=== PATIENT | male | born 1960 | race Caucasian/White ===

== ENCOUNTER 2022-02-24 08:48 | Observation (INO) ==
--- NOTE | 2022-01-19 09:53 | PAT Medication Instructions ---
Medication Instructions Date of Service January 19, 2022 Home Medications albuterol sulfate 90 mcg/actuation aerosol inhaler (ProAir HFA) 1 inh INHALATION QID PRN amlodipine 5 mg tablet 5 mg PO QAM carvedilol 6.25 mg tablet (Coreg) 6.25 mg PO BID diclofenac sodium 3 % topical gel 1 applic TOPICAL BID PRN duloxetine 30 mg capsule,delayed release (Cymbalta) 30 mg PO BID fluticasone 250 mcg-salmeterol 50 mcg/dose blistr powdr for inhalation (Advair Diskus) 1 inh INHALATION BID gabapentin 400 mg capsule 800 mg PO BID glucosamine sulfate 1,000 mg capsule 1,000 mg PO QAM levothyroxine 100 mcg capsule 100 mcg PO QAM losartan 100 mg tablet 100 mg PO QAM multivitamin 1 tab PO QAM rivaroxaban 20 mg tablet (Xarelto) 20 mg PO QAM tamsulosin 0.4 mg capsule 0.4 mg PO QAM tiotropium bromide 18 mcg capsule with inhalation device (Spiriva with HandiHaler) 1 cap INHALATION QAM ASK your surgeon for instructions diclofenac sodium 3 % topical gel 1 applic TOPICAL BID PRN ASK your prescriber and surgeon rivaroxaban 20 mg tablet (Xarelto) 20 mg PO QAM DO NOT take the morning of surgery glucosamine sulfate 1,000 mg capsule 1,000 mg PO QAM losartan 100 mg tablet 100 mg PO QAM multivitamin 1 tab PO QAM Take morning of surgery With a small sip of water, OTHERWISE NOTHING TO EAT OR DRINK AFTER MIDNIGHT: albuterol sulfate 90 mcg/actuation aerosol inhaler (ProAir HFA) 1 inh INHALATION QID PRN(use if needed; please bring with you to hospital day of surgery if possible) amlodipine 5 mg tablet 5 mg PO QAM duloxetine 30 mg capsule,delayed release (Cymbalta) 30 mg PO BID fluticasone 250 mcg-salmeterol 50 mcg/dose blistr powdr for inhalation (Advair Diskus) 1 inh INHALATION BID gabapentin 400 mg capsule 800 mg PO BID carvedilol 6.25 mg tablet (Coreg) 6.25 mg PO BID levothyroxine 100 mcg capsule 100 mcg PO QAM tamsulosin 0.4 mg capsule 0.4 mg PO QAM tiotropium bromide 18 mcg capsule with inhalation device (Spiriva with HandiHaler) 1 cap INHALATION QAM Take evening before surgery albuterol sulfate 90 mcg/actuation aerosol inhaler (ProAir HFA) 1 inh INHALATION QID PRN(if needed) duloxetine 30 mg capsule,delayed release (Cymbalta) 30 mg PO BID fluticasone 250 mcg-salmeterol 50 mcg/dose blistr powdr for inhalation (Advair Diskus) 1 inh INHALATION BID gabapentin 400 mg capsule 800 mg PO BID carvedilol 6.25 mg tablet (Coreg) 6.25 mg PO BID Other Notes If you have any questions please call us at [phone] or [phone] or [phone] or [phone]
--- NOTE | 2022-01-23 11:55 | Anesthesiology Consultation ---
Date of Service January 23, 2022 Assessment & Plan (1) Encounter for pre-operative examination: - Case discussed with Dr. Sanders who advised nothing further needed regarding stress test, however we will attempt to obtain records from oncology and [facility] in [place]. 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 S/p surgical intervention for cervical fracture. - COVID screening: Per assessment on 01/23/2022: Travel screen negative, no known COVID-19 positive contacts or current COVID-19 related symptoms in past 2 weeks. Pt vaccinated. Surgeon arranging preop COVID testing, scheduled 02/22/2022. Awaiting results. Chart Review Chart Review: Pending: Refer to Additional Notes / Consult section and Patient seen in Pre Admission Testing Teaching & Discussion Pre-Anesthesia Teaching/Discussion Notes: Instructed NPO after midnight before surgery, except medications with 15 cc of water. Medication instructions provided according to the PAT guidelines. History Surgery Operation Date: 02/24/22 10:35 Proposed Procedures p Right Reverse Total Shoulder Arthroplasty - Brayan Hubbard, Height/Weight Height: 6 ft Weight: 126 kg Allergies Allergy/AdvReac Type Severity Reaction Status Date / Time ampicillin Allergy Unknown Hives Verified 01/19/22 07:36 clindamycin Allergy Unknown Hives Verified 01/19/22 07:36 Sulfa (Sulfonamide Allergy Unknown Redness of Verified 01/19/22 07:36 Antibiotics) Skin Medications Home Medications Medication Instructions Recorded Confirmed Last Taken albuterol sulfate 90 mcg/actuation 1 inh INHALATION QID PRN 12/14/21 01/19/22 Unknown aerosol inhaler (ProAir HFA) amlodipine 5 mg tablet 5 mg PO QAM 12/14/21 01/19/22 Unknown carvedilol 6.25 mg tablet (Coreg) 6.25 mg PO BID 12/14/21 01/19/22 Unknown diclofenac sodium 3 % topical gel 1 applic TOPICAL BID PRN 12/14/21 01/19/22 Unknown duloxetine 30 mg capsule,delayed 30 mg PO BID 12/14/21 01/19/22 Unknown release (Cymbalta) fluticasone 250 mcg-salmeterol 50 1 inh INHALATION BID 12/14/21 01/19/22 Unknown mcg/dose blistr powdr for inhalation (Advair Diskus) gabapentin 400 mg capsule 800 mg PO BID 12/14/21 01/19/22 Unknown glucosamine sulfate 1,000 mg 1,000 mg PO QAM 12/14/21 01/19/22 Unknown capsule levothyroxine 100 mcg capsule 100 mcg PO QAM 12/14/21 01/19/22 Unknown losartan 100 mg tablet 100 mg PO QAM 12/14/21 01/19/22 Unknown multivitamin 1 tab PO QAM 12/14/21 01/19/22 Unknown rivaroxaban 20 mg tablet (Xarelto) 20 mg PO QAM 12/14/21 01/19/22 Unknown tamsulosin 0.4 mg capsule 0.4 mg PO QAM 12/14/21 01/19/22 Unknown tiotropium bromide 18 mcg capsule 1 cap INHALATION QA 12/14/21 01/19/22 Unknown with inhalation device (Spiriva with HandiHaler) Past Medical History Medical History (Updated 01/23/22 @ 12:39 by Lucrecia Jovel PA-C) COPD (chronic obstructive pulmonary disease) controlled, stable per pt-rescue inhaler use on average once weekly Depression DVT (deep venous thrombosis) LLE-on Xarelto Hypertension controlled, stable per pt Hypothyroidism Hypothyroidism Neck fracture INJURY -SCREWS IN C2 Peripheral neuropathy distal lower extremities and hands bilat Sleep apnea CPAP-compliant 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 Exercise / Class Metabolic Activity II 4-5 Yardwork/Stairs/Walk up hill (denies CP or SOB with 1 FOS) Past Family History Family History Other Diabetes Past Surgical History Surgical History (Updated 01/23/22 @ 12:39 by Lucrecia Jovel PA-C) H/O discectomy H/O hernia repair INGUINAL X2 Status post ORIF of fracture of ankle L Status post tracheostomy PLACED AFTER THROAT SURGERY WAS TAKEN TO [facility] 2017 - TRACH REVERSED Past Anesthesia History Difficult Airway and No Family Hx of Anesthesia Complications History of PONV No Hx of PONV and No Hx of Motion Sickness Social History Smoking Status: Former smoker tobacco type: cigarettes Do You Dip or Chew Tobacco: No Smoking End Date: QUIT 2015 Hx Alcohol Use: Yes Alcohol type: beer alcohol intake frequency: a few times a week Hx Substance Use: No substance use type: does not use Review of Systems Patient denies chest pain, shortness of breath, dyspnea on exertion, reflux, fever, chills, cough, wheezing, or palpitations. Physical Exam Vital Signs Vitals BP 149/85 P 68 TEMP 98.0 SP02 96% on RA RESP 17 Physical Limited cervical extension range of motion TMD 3.5 finger breaths Mallampati Score 2, small oral opening Dentition: intact, several missing teeth; denies chipped or loose teeth, caps/crowns, implants or bridges Lungs: normal respiratory effort. Clear throughout to auscultation, no adventitious breath sounds Cardiac: regular rate and rhythm, no murmurs noted Carotid arteries: negative bruit bilat Lab Results Anesthesia Preop Results Results Anesthesia Widget: WBC 4.72 K/uL (4.8-10.8) L 01/23/22 Hgb 14.4 g/dL (14.0-18.0) 01/23/22 Hct 41.8 % (42-52) L 01/23/22 Plt 178 K/uL (130-400) 01/23/22 Na 138 mmol/L (136-145) 01/23/22 K 4.3 mmol/L (3.5-5.1) 01/23/22 Cl 105 mmol/L (98-107) 01/23/22 CO2 29 mmol/L (21-32) 01/23/22 BUN 15 mg/dl (6-23) 01/23/22 Creat 0.91 mg/dl (0.6-1.4) 01/23/22 Glucose Level 117 mg/dl (70-99(Fasting)) H 01/23/22 PT 12.1 Seconds (9.0-12.0) H 01/23/22 PTT 29.5 Seconds (21.0-31.0) 01/23/22 INR 1.1 (0.9-1.1) 01/23/22 Blood Type O Positive 01/23/22 Antibody Screen NEGATIVE 01/23/22 Testing Electrocardiogram Date: 01/23/22 Sinus bradycardia, rate 55 bpm Chest X-Ray Date: 01/23/22 No lines and tubes are seen. The cardiomediastinal silhouette is normal. The lungs are clear. No evidence of pleural effusion or pneumothorax. Degenerative changes are seen in the thoracic spine. IMPRESSION: No acute chest disease. Stress Test Date: 02/04/20 Exercise MPHR 86% No dobutamine induced EKG changes, occasional PVCs are seen Stress echo: LV EF low-normal to mildly reduced estimated at 50% with mild global hypokinesis and no segmental wall motion abnormality
--- NOTE | 2022-02-23 08:58 | History & Physical Report ---
Date of Service February 23, 2022 Assessment & Plan (1) Osteoarthritis of right shoulder: We will proceed with a right reverse shoulder arthroplasty. Postoperatively he will be kept overnight in the hospital for postoperative medical management. He plans to go to [facility] and [facility] upon discharge. History of Present Illness Chief Complaint: Osteoarthritis of the right shoulder. Primary Care Provider: Akira Lao DO Marcos is a pleasant 61-year-old male who is retired and lives up in [place]. He has been dealing with chronic right shoulder pain. He has been treated by another provider. He has had injections over the years of no longer helping.. He is really struggling. He has trouble doing any activities away from his body or up overhead with his shoulder x-rays show advanced osteoarthritis. After failing conservative treatment, he has elected proceed with a right reverse shoulder arthroplasty. Allergies Allergy/AdvReac Type Severity Reaction Status Date / Time ampicillin Allergy Unknown Hives Verified 01/19/22 07:36 clindamycin Allergy Unknown Hives Verified 01/19/22 07:36 Sulfa (Sulfonamide Allergy Unknown Redness of Verified 01/19/22 07:36 Antibiotics) Skin Home Medications Medication Instructions Recorded Confirmed Type albuterol sulfate 90 mcg/actuation 1 inh inhalation QID PRN Shortness 12/14/21 01/19/22 History aerosol inhaler (ProAir HFA) Of Breath amlodipine 5 mg tablet 5 mg PO QAM 12/14/21 01/19/22 History carvedilol 6.25 mg tablet (Coreg) 6.25 mg PO BID 12/14/21 01/19/22 History diclofenac sodium 3 % topical gel 1 applic topical BID PRN Pain 12/14/21 01/19/22 History duloxetine 30 mg capsule,delayed 30 mg PO BID 12/14/21 01/19/22 History release (Cymbalta) fluticasone 250 mcg-salmeterol 50 1 inh inhalation BID 12/14/21 01/19/22 History mcg/dose blistr powdr for inhalation (Advair Diskus) gabapentin 400 mg capsule 800 mg PO BID 12/14/21 01/19/22 History glucosamine sulfate 1,000 mg 1,000 mg PO QAM 12/14/21 01/19/22 History capsule levothyroxine 100 mcg capsule 100 mcg PO QAM 12/14/21 01/19/22 History losartan 100 mg tablet 100 mg PO QAM 12/14/21 01/19/22 History multivitamin 1 tab PO QAM 12/14/21 01/19/22 History rivaroxaban 20 mg tablet (Xarelto) 20 mg PO QAM 12/14/21 01/19/22 History tamsulosin 0.4 mg capsule 0.4 mg PO QAM 12/14/21 01/19/22 History tiotropium bromide 18 mcg capsule 1 cap inhalation QAM 12/14/21 01/19/22 History with inhalation device (Spiriva with HandiHaler) Past Med/Surg History Medical History COPD (chronic obstructive pulmonary disease) controlled, stable per pt-rescue inhaler use on average once weekly Depression Difficult intubation h/o epiglottis SCC s/p surgery 07/21/16 during which it was determined endoscopic approach would not be adequate. Trach tube was re-placed and per records scanned to chart, pt underwent chemo therapy and radiation, trach eventually reversed. Persistent dysphagia, hoarse voice. Pt is also s/p cervical surgical intervention for C2 fracture with limited cervical extension and small oral opening on exam. DVT (deep venous thrombosis) LLE-on Xarelto Hypertension controlled, stable per pt Hypothyroidism Neck fracture INJURY -SCREWS IN C2 Obesity Peripheral neuropathy distal lower extremities and hands bilat Sleep apnea CPAP-compliant Squamous cell cancer of epiglottis surgical intervention initiated 07/21/16 (see operative report) then terminated d/t extent of disease. Trach tube re-placed. Pt underwent chemo and radiation through [facility] in [place] and trach eventually reversed per records. Follows with ENT, Dr. Bermeo q 6 months Status post fracture of femur W/ ORIF LEFT AFTER INJURY Surgical History H/O discectomy H/O hernia repair INGUINAL X2 Status post ORIF of fracture of ankle L Status post tracheostomy PLACED AFTER THROAT SURGERY WAS TAKEN TO [facility] 2017 - TRACH REVERSED Family History Other Diabetes Social History Smoking Status: Former smoker Smoking End Date: QUIT 2015; Second Hand Exposure: No; Do You Dip or Chew Tobacco: No; Tobacco Cessation Education Requested by Patient: No Hx Alcohol Use: Yes Alcohol type: beer Alcohol Intake Frequency Comment: 1-2 DRINKS/DAY Hx Substance Use: No Preferred Language: Korean Communication Ability: Effective Geothermal Hvac Technician Required: No Beliefs That Will Affect Care: None marital status: Current Living Situation: Spouse current occupational status: retired Other Information That Helps Us Care for You: No Feels Safe at Home: Yes Safety Concerns: Feels Safe At This Time Assistive Devices: CPAP, Denture - Upper, Denture - Lower and Glasses Review of Systems All systems reviewed & are unremarkable except as noted in HPI & below. Physical Exam On physical examination the right shoulder, he has 60 degrees of forward elevation 60 degrees of abduction and 20 degrees of external rotation. He has pain and crepitus with range of motion. He has pain of the glenohumeral joint line.. Constitutional WD/WN, vitals as above Eyes PERRL, conjunctivae normal, anicteric sclerae ENMT external ear and nose normal, oropharynx normal Neck trachea midline, no thyromegaly Respiratory normal respiratory effort, lungs clear to auscultation Cardiovascular RRR, no murmur, no edema Gastrointestinal (Abdomen) normal bowel sounds, soft, nontender, no hepatosplenomegaly Skin no rashes, warm and dry Psychiatric A+Ox3, euthymic affect Results & Data Results & Data Laboratory Results . Diagnostic Findings X-rays of the right shoulder show advanced osteoarthritis with joint space narrowing, osteophyte formation, and [id number] articulation. PG Care Time/CCT Total # of Minutes Spent Total Time Spent with Patient: Total time spent is greater than 50% in coordination of care (as documented) at patient's floor/unit and/or counseling patient: Coding Level of Care Code None Diagnoses Osteoarthritis of right shoulder M19.011
[~2022-02-24 08:48] MED LIST: ACETAMINOPHEN 500 MG TAB PO SCH; ALLERGY Noted to ORDERED Medication SCH; BUPIVACAINE 0.5 % 5 MG/1 ML PF 10ML VIAL ONE; FAMOTIDINE 20 MG TAB PO SCH; GABAPENTIN 600 MG DOSE PO SCH; Ketorolac (*for OR use only*) 30 MG, dexAMETHasone 4 MG, KETAMINE HCL (**OR use only) 1... INFIL SCH; LR 15ML/HR IV SCH; LR 60ML/HR IV SCH; TRANEXAMIC ACID 1,000 MG **IV Intra-op IV SCH; TRANEXAMIC ACID 1,000 MG **IV Pre-op IV SCH; dexAMETHasone 4 MG TAB PO SCH
[2022-02-24] MEDS ORDERED: Nursing to Pharmacy Communication SCH (09:45)
[2022-02-24] MEDS ORDERED: ePHEDrine sulfate 50 MG/ML AMP IV PRN (09:53)
[2022-02-24] MEDS ORDERED: LABETALOL HCL IV 5 MG/ML 20ML IV PRN (09:53)
[2022-02-24] MEDS ORDERED: ATROPINE SULFATE 0.1 MG/ML 10ML SYR IV PRN (09:53)
[2022-02-24] MEDS ORDERED: ONDANSETRON INJ 2 MG/ML 2 ML VIAL IV PRN ×2 (09:53→14:18)
[2022-02-24] MEDS ORDERED: PHENYLEPHRINE 100MCG/ML 5ML SYR IV PRN (09:53)
[2022-02-24] MEDS ORDERED: fentaNYL citrate 100 MCG/2 ML VIAL IV PRN (09:53)
[2022-02-24] MEDS ORDERED: MEPERIDINE HCL 25 MG/ML CARP/VIAL IV PRN (09:53)
[2022-02-24] MEDS ORDERED: HYDROmorphone INJ 1 MG/ML SYRINGE IV PRN (09:53)
[2022-02-24] MEDS ORDERED: ORTHO JOINT ANESTHETIC ONE (10:43)
[2022-02-24] MEDS ORDERED: MIDAZOLAM HCL 1 MG/ML 2ML VIAL ONE (10:49)
[2022-02-24] MEDS ORDERED: fentaNYL citrate 100 MCG/2 ML VIAL ONE (11:03)
--- NOTE | 2022-02-24 11:06 | History & Physical Bridge Note ---
Date of Service February 24, 2022 History & Physical Bridge Note I have examined the patient, reviewed the History & Physical and in the interval since the performance of the History & Physical I have noted the following changes of clinical significance: no changes noted
[2022-02-24] MEDS ORDERED: DEXAMETHASONE SOD INJ 4 MG/ML VIAL ONE (11:35)
--- NOTE | 2022-02-24 13:00 | Operative Report ---
PG Post Operative Report Pre & Post Diagnosis Operation Date: 02/24/22 11:40 Pre-Op Diagnosis: Right Shoulder Osteoarthritis with tendinopathy of the long head of the biceps tendon Post-Op Diagnosis: Right Shoulder Osteoarthritis with tendinopathy of the long head of biceps tendon I identified the patient and participated in the time-out.: Yes Procedure Operation Date: 02/24/22 11:40 Actual Procedures p Right Reverse Total Shoulder Arthroplasty(Right) with open biceps tenodesis as a distinct and separate procedure (modifier 59)- Brayan Hubbard DO Surgeon Brayan Hubbard DO Excavation Laborer Wyatt Ortega PA-C Estimated Blood Loss 300 Findings Consistent with Post-Op Diagnosis Specimens Right humeral head Description of Procedure A CPT code modifier 59: The long head of the biceps tendon was enlarged and inflamed consistent with tendinopathy. A tenodesis was opted. This was a separate and distinct portion of the procedure. For these reasons, a CPT code modifier 59 will be added to this case. Implants used: I used a [employer] Comprehensive reverse total shoulder arthroplasty system with a size 11 press fit micro humeral stem, a standard humeral tray and a standard humeral bearing, a 25 mm small augment baseplate with a 6.5 mm central screw and superior and inferior locking screws, and a size 40 mm eccentric glenosphere. Akira arrived at [facility] for the above procedure. He was seen in the preoperative holding area and the operative extremity was identified and signed. He was given a preoperative antibiotic, TXA, and an interscalene nerve block. He was taken back to the operating room, laid on table in supine position, and put under general anesthesia. He was then put into the beachchair position. The shoulder was then prepped and draped in sterile fashion. A timeout was done and the patient and the operative extremity was properly identified. A deltopectoral approach was used. Dissection was taken down through the fascia and the deltoid was retracted laterally and the conjoined tendon was retracted medially. The anterior shoulder was exposed. The biceps groove was opened up and the biceps tendon was examined extensively. The biceps tendon demonstrated enlargement and inflammatory changes consistent with longstanding inflammation in the context of osteoarthritis and cuff arthropathy. The long head of the biceps tendon was then tenodesed to the upper border of the pectoralis major. This was a separate and distinct portion of the procedure. The subscapularis was then directly released off the lesser tuberosity with a peel technique. The inferior capsule was released and the humeral head was dislocated. A canal finding reamer was sent down the center of the humeral canal. Sequential reaming up to a size 11 reamer was done. Off that reamer, a proximal humeral resection guide was placed. The proximal humerus was resected at 135 of inclination and 25 of retroversion. Osteophytes were then removed and the glenoid was exposed. Time was spent doing a complete capsular and labral release. A ZimRollCall (roll.to) Signature One guide was then attached onto the anterior rim of the glenoid. A 3.2 mm Steinmann pin was then placed in the reverse total shoulder arthroplasty hole. The glenoid baseplate was then reamed. The final size 25 mm small augment baseplate was then impacted in the place. A 6.5 mm central screw was then placed followed by superior and inferior locking screws. A 40 mm eccentric glenosphere was then impacted into place. Surrounding soft tissues were then injected with 100 cc an orthopedic pain control cocktail. The proximal humerus was then exposed. Sequential broaching of the humerus up to a size 11 broach was done. Off that broach a standard humeral tray was trialed. The shoulder was then reduced, brought through a full range of motion, and felt to be stable. The shoulder was then dislocated and the broach was removed. The final size 11 micro press-fit humeral stem was then impacted into place. A standard humeral bearing was then snapped onto a standard humeral tray. The humeral tray was then impacted onto the humeral stem. The shoulder was once again reduced, brought through a full range of motion, and felt to be stable. The subscapularis was very poor quality and unable to be repaired. A dilute betadyne lavage was then done for 3 minutes. The joint was then irrigated with normal saline solution. Hemostasis was obtained. The interval was closed with 2-0 Vicryl suture. The skin was then closed with 2-0 Vicryl and kaiser. A Silverlon dressing was placed and the arm was rested in a regular arm sling. He was then extubated and transferred to a hospital bed. He taken to the postanesthesia care unit in stable condition. He tolerated the procedure well. Brayan Germain PA-C, was present for the entire procedure. He was critical for patient positioning, prepping, draping, retraction exposure, wound closure and application of sterile dressing. I attest to the content of the Intraoperative Record and any orders documented therein. Any exceptions are noted below.
[2022-02-24] MEDS ORDERED: LIDOCAINE 2% 20 MG/ML 5 ML SYR IV ONE (13:29)
[2022-02-24] MEDS ORDERED: VASOPRESSIN 20 UNIT/ML VIAL ONE (13:29)
[2022-02-24] MEDS ORDERED: GLYCOPYRROLATE 0.2 MG/ML VIAL ONE (13:29)
--- NOTE | 2022-02-24 13:58 | XRay Report ---
RIGHT SHOULDER 2 VIEWS CLINICAL HISTORY: Postoperative examination. FINDINGS: 2 portable views of the right shoulder are obtained. The skeletal structures are osteopenic . A right shoulder arthroplasty is in near-anatomic alignment. No acute fracture is seen. Skin clips, soft tissue edema, and subcutaneous gas overlying the right shoulder are expected postoperative chicas ges. There is chronic posttraumatic deformity of the right humeral shaft. Productive degenerative lore nge is seen at the right acromioclavicular joint. The right lung parenchyma is clear as imaged. IMPRESSION: Expected postoperative findings status post right shoulder arthroplasty. No acute fractur e is seen. Electronically signed by: Nestor Umana M.D. 02/24/2022 1:56 PM
[2022-02-24] MEDS ORDERED: ALBUTEROL HFA 8 GM INHALER INH PRN (14:18)
[2022-02-24] MEDS ORDERED: oxyCODONE HCL IR 5 MG TAB (IMMEDIATE RELEASE) PO PRN (14:18)
[2022-02-24] MEDS ORDERED: MAGNESIUM HYDROXIDE SUSP 30 ML UDC PO PRN (14:18)
[2022-02-24] MEDS ORDERED: bisacodyL 10 MG SUPP PR PRN (14:18)
[2022-02-24] MEDS ORDERED: HYDROmorphone INJ 0.5 MG/0.5 ML SYR IV PRN (14:18)
[2022-02-24] MEDS ORDERED: NALOXONE HCL 0.4 MG/1 ML VIAL/CARP IV PRN (14:18)
[2022-02-24] MEDS ORDERED: METOCLOPRAMIDE HCL INJ 5 MG/ML 2 ML VIAL IV PRN (14:18)
--- NOTE | 2022-02-24 14:25 | Anesthesiology Progress Note ---
Date of Service February 24, 2022 Anesthesia Post Procedure Vital Signs Vital Signs: Temp Pulse Resp BP Pulse Ox O2 Del Method O2 Flow Rate 02/24/22 14:00 36.1 C L 72 16 114/68 94 Nasal Cannula 2 02/24/22 13:50 75 18 142/80 H 94 Nasal Cannula 2 02/24/22 13:40 78 18 125/78 98 Oxymask 5 02/24/22 13:30 79 18 129/89 98 Oxymask 5 02/24/22 13:23 35.8 C L 84 20 146/84 H 96 Oxymask 5 02/24/22 09:41 36.8 C 64 22 137/86 96 Room Air Pain Intensity Right Shoulder: Pain Intensity: 2 Transfer of Care Handoff Completed per policy Notes Mental Status: alert / awake / arousable Patient Amnestic to Procedure: Yes Nausea / Vomiting: adequately controlled Pain: adequately controlled Airway Patency, RR, SpO2: stable & adequate BP & HR: stable & adequate Hydration State: stable & adequate Anesthetic Complications: no major complications apparent and Pt Satisfied with anesthetic care Notes: The patient is awake and comfortable. SpO2 is 94 on 2 L NC. His other vitals are stable. The patient is using an incentive spirometer. The patient was noted to have a small airway requiring a 6.5 ETT due to history of epiglottis cancer and tracheostomy. He tolerated the procedure well and was extubated without incident in the OR.
[2022-02-24] MEDS: SODIUM CHLORIDE 0.9% 1000ML 1,000 ML IV SCH ×2 (14:39→22:15)
--- NOTE | 2022-02-24 15:23 | Operative Report ---
Post Operative Report Pre & Post Diagnosis Operation Date: 02/24/22 11:40 Pre-Op Diagnosis: Right Shoulder Osteoarthritis Post-Op Diagnosis: Right Shoulder Osteoarthritis I identified the patient and participated in the time-out.: Yes Procedure Operation Date: 02/24/22 11:40 Actual Procedures p Right Reverse Total Shoulder Arthroplasty(Right) - Brayan Hubbard DO Surgeon Arturo Hubbard MD Diversional Therapist Wyatt Ortega PA-C, Solitario Curry MD Estimated Blood Loss 300 Findings Consistent with Post-Op Diagnosis Consistent with post op diagnosis. Specimens No specimens. Description of Procedure I participated in prepping dressing and assisted Dr. Hubbard during the procedeure. Please see Dr. Hubbard note. I attest to the content of the Intraoperative Record and any orders documented therein. Any exceptions are noted below.
[2022-02-24] MEDS: ACETAMINOPHEN 500 MG TAB PO SCH ×2 (16:18→22:15)
[2022-02-24] MEDS: ceFAZolin 2000MG 2,000 MG/15 ML SYR IV SCH (20:41)
[2022-02-24] MEDS: DULoxetine HCL 30 MG CAP PO SCH (20:43)
[2022-02-24] MEDS: carvediloL 6.25 MG TAB PO SCH (20:43)
[2022-02-24] MEDS: DOCUSATE SODIUM 100 MG CAP PO SCH (20:45)
[2022-02-24] MEDS ORDERED: SENNA 8.6 MG TAB PO SCH (21:00)
[2022-02-25] MEDS: ceFAZolin 2000MG 2,000 MG/15 ML SYR IV SCH (03:45)
[2022-02-25] MEDS: ACETAMINOPHEN 500 MG TAB PO SCH (05:44)
[2022-02-25] MEDS ORDERED: LEVOTHYROXINE SODIUM 100 MCG TABLET PO SCH (06:30)
[2022-02-25] MEDS ORDERED: dexAMETHasone 4 MG TAB PO SCH (08:00)
--- NOTE | 2022-02-25 08:30 | Orthopedic Progress Note ---
Date of Service February 25, 2022 Assessment & Plan (1) Status post reverse total replacement of right shoulder: Overall is doing very well. Is not having any pain in his right shoulder. He will be seen by physical therapy today for ambulation and range of motion exercises. He can be discharged home later today. He will follow-up with orthopedics in 2 weeks. Subjective Marcos was seen and examined at bedside this morning. Overall is doing very well. He is not having any pain in the right shoulder. He had no acute events overnight and he has no complaints.. Review of Systems All systems reviewed & are unremarkable except as noted in HPI & below. Physical Exam On physical examination of the right shoulder, the dressing is clean and dry. He is wearing a sling as instructed. The nerve block is still in effect.. Results & Data Results & Data Laboratory Results . Diagnostic Findings Postoperative x-rays of the right shoulder show the prosthesis to be in anatomic alignment without any evidence of fracture, screws, or loosening. PG Care Time/CCT Total # of Minutes Spent Total Time Spent with Patient: Total time spent is greater than 50% in coordination of care (as documented) at patient's floor/unit and/or counseling patient: Coding Level of Care Code 60943 Post Operative Follow-Up Diagnoses Status post reverse total replacement of right shoulder Z96.611
--- NOTE | 2022-02-25 08:31 | Discharge Summary ---
Date of Service February 25, 2022 Admission HPI (Per Admitting) Marcos is a pleasant 61-year-old male who is retired and lives up in [place]. He has been dealing with chronic right shoulder pain. He has been treated by another provider. He has had injections over the years of no longer helping.. He is really struggling. He has trouble doing any activities away from his body or up overhead with his shoulder x-rays show advanced osteoarthritis. After failing conservative treatment, he has elected proceed with a right reverse shoulder arthroplasty. Admission Exam (Per Admitting) On physical examination the right shoulder, he has 60 degrees of forward elev ation 60 degrees of abduction and 20 degrees of external rotation. He has pain and crepitus with range of motion. He has pain of the glenohumeral joint line.. Principal Diagnosis Same as "Discharge Diagnosis" noted below under Discharge Instructions. Discharge Exam On physical examination of the right shoulder, the dressing is clean and dry. He is wearing a sling as instructed. The nerve block is still in effect.. Discharge Data Procedures Performed Operation Date: 02/24/22 11:40 Actual Procedures p Right Reverse Total Shoulder Arthroplasty(Right) - Brayan Hubbard DO Ordered Studies 02/24/22 05:00 US - OR guided needle placemen Routine Hospital Course (1) Status post reverse total replacement of right shoulder: On February 24, 2022 Marcos arrived at [facility] and underwent a right reverse shoulder replaced without complication. He had a spinal anesthetic and a right interscalene nerve block. Postoperatively he was placed in a sling and transferred to the general orthopedic floors. His hospital course was uneventful. On postop day #1, his vital signs were stable and his pain was well controlled. He was able to participate well with physical therapy doing ambulation and range of motion exercises. He was then discharged home. He will follow-up with orthopedics in 2 weeks. PG Care Time/CCT Total # of Minutes Spent Total Time Spent with Patient: Total time spent is greater than 50% in coordination of care (as documented) at patient's floor/unit and/or counseling patient: Discharge Plan Discharge Items Patient Disposition: Home - Home Health Services Reason For Visit: Right Shoulder Osteoarthritis Discharge Diagnosis: Right reverse shoulder replacement Activity: Per Instructions section Non-emergency contact: Surgeon Call non-emergency contact if: your wound has increased redness and your wound has increased drainage Follow-up/Referrals: Akira Lao DO [Primary Care Provider] - Diet: Regular Addtl Attending Provider Instructions: Activity and Therapy Recommendations: * If you are using [facility] then therapy will be provided at your home until they feel you have accomplished all of your goals. * If you are using [facility] then Physical Therapy will be provided until they feel you are ready to start Outpatient Physical Therapy. * If you are not using home therapy then Outpatient Physical Therapy should start about 3-5 days from your day of surgery. Therapy will last about 8-12 weeks * Wear your sling for 3 weeks, unless otherwise instructed. You may remove your sling to shower and to dress, but otherwise, you should be in your sling at all times, including while sleeping * The shoulder replacement is very stable and you can use your hand while in the sling * You were shown a series of exercises in the hospital. Do these exercises daily including the exercises you were shown in physical therapy. Medications: * Narcotic You will likely be sent home from the hospital with a prescription for the narcotic pain medication that worked best throughout your stay. * Other medications may be prescribed for specific circumstances. If you have any questions, please call the office at . * Resume previous home medications unless otherwise instructed Dressing Care: Leave the Silverlon dressing in place for 7 days. After 7 days you may remove the dressing. If the incision is not draining then you may leave the kaiser open to air. If there is a little bit of drainage or if the kaiser are getting stuck on your clothing then cover the incision with a dry dressing. The kaiser will be removed at your 2 week follow-up appointment. Showering: You may shower with the Silverlon dressing in place. Do not let the shower spray hit the dressing directly. Pat the Silverlon dressing dry. If the dressing becomes wet underneath, then simply remove the dressing. Keep the incision dry until you are 7 days out from the day of surgery. After 7 days you may remove the Silverlon dressing and shower with the kaiser exposed. Let soapy water run over the kaiser and pat them dry. Do not scrub or soak the incision. Things To Watch For: * Drainage from the incision site that occurs more than one week after your surgery. * Increased redness at the incision site. * Fever above 102 degrees Fahrenheit. * Unusual chest pain or shortness of breath. * Call [facility] at with any of the above problems Follow-Up Visit: Follow-up with Dr. Hubbard's PA (Brayan Germain) 2-3 weeks after your day of surgery. He will remove your kaiser and answer any questions. If you have any additional questions or concerns, Dr Hubbard is usually in the office at the same time and will be available An appointment was probably scheduled when you signed-up for surgery in the office. If you have any questions call More detailed instructions as well as Frequently Asked Questions were provided in a folder by our office when you signed-up for surgery. Please review these instructions when you get home. If you have any further questions or concerns, please feel free to call the office at [phone] Pending Studies at Discharge: No Stand-Alone Forms: My [facility], Smoking Cessation Medications and DC Order Prescriptions: New oxycodone-acetaminophen 5-325 mg tablet 1 tab PO Q6H PRN (Reason: pain) Qty: 30 0RF Continued duloxetine [Cymbalta] 30 mg capsule,delayed release(DR/EC) 30 mg PO BID losartan 100 mg tablet 100 mg PO QAM diclofenac sodium 3 % gel 1 applic topical BID PRN (Reason: Pain) levothyroxine 100 mcg capsule 100 mcg PO QAM fluticasone propion-salmeterol [Advair Diskus] 250-50 mcg/dose blister with device 1 inh inhalation BID Spiriva with HandiHaler 18 mcg capsule, w/inhalation device 1 cap inhalation QAM Rx Instructions: puncture 1 cap using device; one dose = 2 inhalations amlodipine 5 mg tablet 5 mg PO QAM albuterol sulfate [ProAir HFA] 90 mcg/actuation HFA aerosol inhaler 1 inh inhalation QID PRN (Reason: Shortness Of Breath) tamsulosin 0.4 mg capsule 0.4 mg PO QAM multivitamin Tablet 1 tab PO QAM Xarelto 20 mg tablet 20 mg PO QAM Rx Instructions: must administer with evening meal carvedilol [Coreg] 6.25 mg tablet 6.25 mg PO BID Rx Instructions: must administer with a meal/food glucosamine sulfate 1,000 mg capsule 1,000 mg PO QAM Rx Instructions: administer with a meal Discharge Orders: Discharge Order (Routine); Ordered 02/25/22 Ordered By: Brayan Hubbard Admission Data Admit Date/Time: 02/24/22 13:25 Attending Provider: Brayan Hubbard Admit Provider: Brayan Hubbard Primary Care Provider: Akira Lao
[2022-02-25] MEDS: DULoxetine HCL 30 MG CAP PO SCH (08:43)
[2022-02-25] MEDS: DOCUSATE SODIUM 100 MG CAP PO SCH (08:44)
[2022-02-25] MEDS: carvediloL 6.25 MG TAB PO SCH (08:44)
[2022-02-25] MEDS ORDERED: RIVAROXABAN 20 MG TAB PO SCH (09:00)
[2022-02-25] MEDS ORDERED: LOSARTAN POTASSIUM 50 MG TAB PO SCH (09:00)
[2022-02-25] MEDS ORDERED: MULTIVITAMIN TAB PO SCH (09:00)
[2022-02-25] MEDS ORDERED: UMECLIDINIUM BROMIDE 62.5MCG/BLISTER 7 PUFFS/INHALER INH SCH (09:00)
[2022-02-25] MEDS ORDERED: amLODIPine BESYLATE 5 MG TAB PO SCH (09:00)
[2022-02-25] MEDS ORDERED: FLUTICASONE/VILANTEROL 200/25MCG 14 PUFFS/INHALER INH SCH (09:00)
[2022-02-25] MEDS ORDERED: TAMSULOSIN HCL 0.4 MG CAP PO SCH (09:00)
== END 2022-02-25 11:24 | disposition home health service (06) ==
LOC: 3E 08:48 → ASU 08:48

== ENCOUNTER 2022-12-08 07:40 | Observation (INO) ==
--- NOTE | 2022-11-02 11:17 | PAT Medication Instructions ---
Medication Instructions Date of Service November 02, 2022 Home Medications Medication Instructions Recorded Renea Vela #1 ea 04/12/22 Medication List: albuterol sulfate 90 mcg/actuation aerosol inhaler (ProAir HFA) 1 inh inhalation QID PRN Shortness Of Breath amlodipine 5 mg tablet 5 mg PO QAM carvedilol 6.25 mg tablet (Coreg) 12.5 mg PO BID diclofenac sodium 3 % topical gel 1 applic topical BID PRN Pain duloxetine 30 mg capsule,delayed release (Cymbalta) 30 mg PO BID fluticasone 250 mcg-salmeterol 50 mcg/dose blistr powdr for inhalation (Advair Diskus) 1 inh inhalation BID levothyroxine 100 mcg capsule 100 mcg PO QAM losartan 100 mg tablet 100 mg PO QAM tamsulosin 0.4 mg capsule 0.4 mg PO BID tiotropium bromide 18 mcg capsule with inhalation device (Spiriva with HandiHaler) 1 cap inhalation QAM aspirin 81 mg tablet,delayed release 81 mg PO QAM acetaminophen 325 mg tablet (Tylenol) 325 mg PO QID PRN Pain apixaban 5 mg tablet (Eliquis) 5 mg PO BID ASK your prescriber and surgeon apixaban 5 mg tablet (Eliquis) 5 mg PO BID (for spinal anesthesia: will need to hold Eliquis/apixaban at least 72 hours prior to surgery) aspirin 81 mg tablet,delayed release 81 mg PO QAM DO NOT take the morning of surgery diclofenac sodium 3 % topical gel 1 applic topical BID PRN Pain (do not use af ter cleansing area before surgery) losartan 100 mg tablet 100 mg PO QAM Take morning of surgery With a small sip of water, OTHERWISE NOTHING TO EAT OR DRINK AFTER MIDNIGHT: acetaminophen 325 mg tablet (Tylenol) 325 mg PO QID PRN Pain (may take if needed) albuterol sulfate 90 mcg/actuation aerosol inhaler (ProAir HFA) 1 inh inhalation QID PRN Shortness Of Breath (use if needed; BRING TO HOSPITAL) amlodipine 5 mg tablet 5 mg PO QAM carvedilol 6.25 mg tablet (Coreg) 12.5 mg PO BID duloxetine 30 mg capsule,delayed release (Cymbalta) 30 mg PO BID tamsulosin 0.4 mg capsule 0.4 mg PO BID fluticasone 250 mcg-salmeterol 50 mcg/dose blistr powdr for inhalation (Advair Diskus) 1 inh inhalation BID tiotropium bromide 18 mcg capsule with inhalation device (Spiriva with HandiHaler) 1 cap inhalation QAM levothyroxine 100 mcg capsule 100 mcg PO QAM Take evening before surgery acetaminophen 325 mg tablet (Tylenol) 325 mg PO QID PRN Pain (may take if needed) albuterol sulfate 90 mcg/actuation aerosol inhaler (ProAir HFA) 1 inh inhalation QID PRN Shortness Of Breath (if needed) carvedilol 6.25 mg tablet (Coreg) 12.5 mg PO BID duloxetine 30 mg capsule,delayed release (Cymbalta) 30 mg PO BID tamsulosin 0.4 mg capsule 0.4 mg PO BID fluticasone 250 mcg-salmeterol 50 mcg/dose blistr powdr for inhalation (Advair Diskus) 1 inh inhalation BID tiotropium bromide 18 mcg capsule with inhalation device (Spiriva with HandiHaler) 1 cap inhalation QAM Other Notes If you have any questions please call us at [phone] or [phone] or [phone] or [phone]
--- NOTE | 2022-11-08 12:02 | Anesthesiology Consultation ---
Date of Service November 08, 2022 Assessment & Plan (1) Encounter for pre-operative examination: - Outpatient joint assessment: Pt currently scheduled for inpatient pathway. If surgeon requests review for outpatient joint pathway, patient is not recommended candidate for outpatient joint program from anesthesia standpoint. - COVID screening: Per assessment on 11/08: No known COVID-19 positive contacts or current COVID-19 related symptoms. Travel screen negative. Patient vaccinated. At surgeon discretion if preop Covid testing being done. - Eliquis instructions: patient made aware that in order for spinal anesthesia, Eliquis needs to be held 72 hours/3 days prior to surgery. Patient voiced understanding/will check if okay with prescriber. - Cardiology visit (09/26/22): "Coronary Artery Disease (nonobstructive by cath 09/2019): Stable. No anginal symptoms reported. ECG normal in the office today (PRWP unchanged from prior ECGs). Report chronic stable dyspnea on exertion, but no chest pain. Recent echocardiogram demonstrated an LVEF of 48%this is actually better than previous echocardiogram (35-40%), but similar to his nuclear stress performed at that time (50-55%). Overall, this seems to be relatively stable.. No additional ischemic evaluation at this time.. He is not on aspirin, but he is on Eliquis. Reasonable to not start aspirin given the nonobstructive nature of his CAD and no history of MN or revascularization" One year f/u recommended. 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 S/p surgical intervention for cervical fracture. Right reverse TSA (02/24/22): Grade view 1 "good view, narrow airway, swollen epiglottis, liekly subglottic stenosis as well" with "Elective" glidescope #3, ETT 6.5. 7.0 ETT attempted- "very tight especially after going through cords" at [facility]. Per post-op anesthesia progress note, "The patient is awake and comfortable. SpO2 is 94 on 2 L NC. His other vitals are stable. The patient is using an incentive spirometer. The patient was noted to have a small airway requiring a 6.5 ETT due to history of epiglottis cancer and tracheostomy. He tolerated the procedure well and was extubated without incident in the OR." Chart Review Chart Review: Acceptable Risk for Surgery and Patient seen in Pre Admission Testing Teaching & Discussion Pre-Anesthesia Teaching/Discussion Notes: Instructed NPO after midnight before surgery,except medications with 15 cc of water. Medication instructions provided according to the PAT guidelines. History Surgery Operation Date: 12/08/22 11:40 Proposed Procedures p Right Total Knee Arthroplasty - Brayan Hubbard, Height/Weight Height: 6 ft Weight: 130.2 kg Allergies Allergy/AdvReac Type Severity Reaction Status Date / Time ampicillin Allergy Intermediate Hives Verified 11/02/22 08:32 clindamycin Allergy Intermediate Hives Verified 11/02/22 08:32 Sulfa (Sulfonamide Allergy Intermediate Redness of Verified 11/02/22 08:32 Antibiotics) Skin Medications Home Medications Medication Instructions Recorded Confirmed Last Taken albuterol sulfate 90 mcg/actuation 1 inh inhalation QID PRN Shortness 12/14/21 11/02/22 02/23/22 21:00 aerosol inhaler (ProAir HFA) Of Breath amlodipine 5 mg tablet 5 mg PO QAM 12/14/21 11/02/22 02/24/22 06:30 carvedilol 6.25 mg tablet (Coreg) 12.5 mg PO BID 12/14/21 11/02/22 02/24/22 06:30 diclofenac sodium 3 % topical gel 1 applic topical BID PRN Pain 12/14/21 11/02/22 2 Weeks Ago ~02/10/22 duloxetine 30 mg capsule,delayed 30 mg PO BID 12/14/21 11/02/22 02/24/22 06:30 release (Cymbalta) fluticasone 250 mcg-salmeterol 50 1 inh inhalation BID 12/14/21 11/02/22 02/23/22 17:00 mcg/dose blistr powdr for inhalation (Advair Diskus) levothyroxine 100 mcg capsule 100 mcg PO QAM 12/14/21 11/02/22 02/24/22 06:30 losartan 100 mg tablet 100 mg PO QAM 12/14/21 11/02/22 02/23/22 08:00 tamsulosin 0.4 mg capsule 0.4 mg PO BID 12/14/21 11/02/22 02/23/22 17:00 tiotropium bromide 18 mcg capsule 1 cap inhalation QAM 12/14/21 11/02/22 02/24/22 06:30 with inhalation device (Spiriva with HandiHaler) Wheeled Walker #1 ea 04/12/22 05/26/22 Unknown aspirin 81 mg tablet,delayed 81 mg PO QAM 05/26/22 11/02/22 Unknown release acetaminophen 325 mg tablet 325 mg PO QID PRN Pain 11/02/22 11/02/22 Unknown (Tylenol) apixaban 5 mg tablet (Eliquis) 5 mg PO BID 11/02/22 11/02/22 Unknown Past Medical History Medical History COPD (chronic obstructive pulmonary disease) Depression Difficult intubation Hx epiglottis SCC s/p surgery 07/21/16 during which it was determined endoscopic approach would not be adequate. Trach tube was re-placed and per records scanned to chart, pt underwent chemo therapy and radiation, trach eventually reversed. Persistent dysphagia, hoarse voice. Pt is also s/p cervical surgical intervention for C2 fracture with limited cervical extension and small oral opening on exam. DVT (deep venous thrombosis) LLE DVT (20 years ago) again to right leg in Jun 2022 > Eliquis History of cellulitis RLE, resolved s/p abx/steroids Hypertension Hypothyroidism Neck fracture s/p surgery (screws C2) Obesity Peripheral neuropathy Distal lower extremities + hands Sleep apnea CPAP (compliant) Squamous cell cancer of epiglottis Surgical intervention initiated 07/21/16 (see operative report) then terminated d/t extent of disease. Trach tube re-placed. Pt underwent chemo and radiation through [facility] in [place] and trach eventually reversed approximately 6 months after placement. Follows with ENT, Dr. Bermeo q 6 months Exercise / Class Metabolic Activity II 4-5 Yardwork/Stairs/Walk up hill (one FS (no CP, no SOB)) Past Family History Family History Other Diabetes Past Surgical History Surgical History H/O discectomy C2 > 90% ROM per pt, side to side is more difficult H/O hernia repair Inguinal x2 History of colonoscopy History of esophagogastroduodenoscopy (EGD) History of reverse total replacement of right shoulder joint Right reverse TSA (02/24/22): Grade view 1 "good view, narrow airway, swollen epiglottis, liekly subglottic stenosis as well" with "Elective" glidescope #3, ETT 6.5. 7.0 ETT attempted- "very tight especially after going through cords" at [facility]. Per post-op anesthesia progress note, "The patient is awake and comfortable. SpO2 is 94 on 2 L NC. His other vitals are stable. The patient is using an incentive spirometer. The patient was noted to have a small airway requiring a 6.5 ETT due to history of epiglottis cancer and tracheostomy. 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 S/p surgical intervention for cervical fracture. Right reverse TSA (02/24/22): Grade view 1 "good view, narrow airway, swollen epiglottis, liekly subglottic stenosis as well" with "Elective" glidescope #3, ETT 6.5. 7.0 ETT attempted- "very tight especially after going through cords" at [facility]. Per post-op anesthesia progress note, "The patient is awake and comfortable. SpO2 is 94 on 2 L NC. His other vitals are stable. The patient is using an incentive spirometer. The patient was noted to have a small airway requiring a 6.5 ETT due to history of epiglottis cancer and tracheostomy. He tolerated the procedure well and was extubated without incident in the OR." History of PONV No Hx of PONV and No Hx of Motion Sickness Social History Smoking Status: Former smoker tobacco type: cigarettes Do You Dip or Chew Tobacco: No Smoking End Date: Quit 2015 Hx Alcohol Use: Yes Alcohol type: beer alcohol intake frequency: a few times a month Hx Substance Use: No substance use type: does not use Review of Systems Patient denies chest pain, shortness of breath, dyspnea on exertion, fever, chills, cough, wheezing, palpitations. Physical Exam Vital Signs VITALS BP 112/70 P 74 TEMP 98.9 SP02 95%RA RESP 18 PHYSICAL Mildly decreased cervical extension range of motion. Full TMJ range of motion. TMD 4 finger breaths Mallampati Score 3 Dentition: upper partial, lower full denture Lungs: course breath sounds Cardiac: regular rate and rhythm, no murmurs noted Spine: normal Carotid arteries: negative bruit Extremities: no edema Lab Results Anesthesia Preop Results Results Anesthesia Widget: WBC 5.26 K/ul (4.8-10.8) 11/08/22 Hgb 13.9 g/dl (14.0-18.0) L 11/08/22 Hct 39.5 % (42.0-52.0) L 11/08/22 Plt 175 K/uL (130-400) 11/08/22 Na 138 mmol/L (136-145) 11/08/22 K 4.0 mmol/L (3.5-5.1) 11/08/22 Cl 103 mmol/L (98-107) 11/08/22 CO2 28 mmol/L (21-32) 11/08/22 BUN 11 mg/dl (6-23) 11/08/22 Creat 1.08 mg/dl (0.6-1.4) 11/08/22 Glucose Level 104 mg/dl (70-99(Fasting)) H 11/08/22 PT 11.2 Seconds (9.0-12.0) 11/08/22 PTT 28.1 Seconds (21.0-31.0) 11/08/22 INR 1.1 (0.9-1.1) 11/08/22 Blood Type O Positive 11/08/22 Antibody Screen NEGATIVE 11/08/22 Testing Electrocardiogram Date: 01/23/22 Sinus bradycardia, rate 55 bpm Chest X-Ray Date: 01/23/22 No lines and tubes are seen. The cardiomediastinal silhouette is normal. The lungs are clear. No evidence of pleural effusion or pneumothorax. Degenerative changes are seen in the thoracic spine. IMPRESSION: No acute chest disease. Echocardiogram Date: 09/19/22 EF 48%. Mild diffuse hypokinesis. Systolic function is at the lower limits of normal. Aortic valve sclerosis. No evidence of stenosis. No significant valvular disease. Stress Test Date: 02/04/20 Exercise MPHR 86% No dobutamine induced EKG changes, occasional PVCs are seen Stress echo: LV EF low-normal to mildly reduced estimated at 50% with mild global hypokinesis and no segmental wall motion abnormality COVID-19 Risk Screen Screening Information COVID-19 Screen Date: 11/08/22 Exposure 21 Days Family/Household +COVID Last 21 Days: No Exposure 10 Days Any COVID Exposure Last 10 Days: No Symptoms Last 10 Days Experienced COVID Sx Last 10 Days: No + COVID 0-90 Days COVID + in Last 0-90 Days: No
[~2022-12-08 07:40] MED LIST changes: -ALLERGY Noted to ORDERED Medication SCH; +GABAPENTIN 300 MG CAP PO SCH; -GABAPENTIN 600 MG DOSE PO SCH; -Ketorolac (*for OR use only*) 30 MG, dexAMETHasone 4 MG, KETAMINE HCL (**OR use only) 1... INFIL SCH; -LR 15ML/HR IV SCH; +LR 500ML BOLUS, THEN 15ML/HR IV SCH; +ORTHO JOINT MIX INFIL SCH; +ROPIVACAINE 0.5% 5 MG/ML 30 ML VIAL ONE
[2022-12-08] MEDS ORDERED: PROPOFOL IV EMULSION 10 MG/ML 20 ML VIAL IV ONE (08:24)
[2022-12-08] MEDS ORDERED: MIDAZOLAM HCL 1 MG/ML 2ML VIAL ONE (08:24)
[2022-12-08] MEDS ORDERED: fentaNYL citrate PF 100 MCG/2 ML VIAL ONE ×2 (08:25→11:58)
[2022-12-08] MEDS ORDERED: ONDANSETRON INJ 2 MG/ML 2 ML VIAL IV PRN ×2 (09:59→13:53)
[2022-12-08] MEDS ORDERED: ePHEDrine sulfate 50 MG/ML AMP IV PRN (09:59)
[2022-12-08] MEDS ORDERED: ATROPINE SULFATE 0.1 MG/ML 10ML SYR IV PRN (09:59)
--- NOTE | 2022-12-08 09:59 | Anesthesiology Consultation ---
Date of Service December 08, 2022 Assessment & Plan Chart Review Chart Review: Acceptable Risk for Surgery Consults Requested none ASA ASA3 Proposed Anesthesia Anesthesia Type: General Regional Regional Laterality: Right Site: Adductor Canal Risk / Benefits Reviewed With: PT / POA / Parent / Guardian, Accepts Plan and Informed Consent Obtained History Surgery Operation Date: 12/08/22 10:00 Proposed Procedures p Right Total Knee Arthroplasty - Brayan Hubbard, Height/Weight Height: 6 ft Weight: 129.138 kg Allergies Allergy/AdvReac Type Severity Reaction Status Date / Time ampicillin Allergy Intermediate Hives Verified 12/08/22 08:09 clindamycin Allergy Intermediate Hives Verified 12/08/22 08:09 Sulfa (Sulfonamide Allergy Intermediate Redness of Verified 12/08/22 08:09 Antibiotics) Skin Medications Home Medications Medication Instructions Recorded Confirmed Last Taken albuterol sulfate 90 mcg/actuation 1 inh inhalation QID PRN Shortness 12/14/21 12/08/22 02/23/22 21:00 aerosol inhaler (ProAir HFA) Of Breath amlodipine 5 mg tablet 5 mg PO QAM 12/14/21 12/08/22 12/08/22 05:00 carvedilol 6.25 mg tablet (Coreg) 12.5 mg PO BID 12/14/21 12/08/22 12/08/22 05:00 diclofenac sodium 3 % topical gel 1 applic topical BID PRN Pain 12/14/21 12/08/22 2 Weeks Ago ~02/10/22 duloxetine 30 mg capsule,delayed 30 mg PO BID 12/14/21 12/08/22 12/08/22 05:00 release (Cymbalta) fluticasone 250 mcg-salmeterol 50 1 inh inhalation BID 12/14/21 12/08/22 12/07/22 18:00 mcg/dose blistr powdr for inhalation (Advair Diskus) levothyroxine 100 mcg capsule 100 mcg PO QAM 12/14/21 12/08/22 12/08/22 05:00 losartan 100 mg tablet 100 mg PO QAM 12/14/21 12/08/22 12/07/22 08:00 tamsulosin 0.4 mg capsule 0.4 mg PO BID 12/14/21 12/08/22 12/07/22 18:00 tiotropium bromide 18 mcg capsule 1 cap inhalation QAM 12/14/21 12/08/22 12/08/22 05:00 with inhalation device (Spiriva with HandiHaler) Renea Vela #1 ea 04/12/22 05/26/22 Unknown aspirin 81 mg tablet,delayed 81 mg PO QAM 05/26/22 12/08/22 12/07/22 08:00 release acetaminophen 325 mg tablet 325 mg PO QID PRN Pain 11/02/22 12/08/22 12/07/22 08:00 (Tylenol) apixaban 5 mg tablet (Eliquis) 5 mg PO BID 11/02/22 12/08/22 12/05/22 17:00 Active Medications Generic Name Dose Route Start Last Admin Trade Name Freq PRN Reason Stop Dose Admin Acetaminophen 1,000 mg 12/08/22 06:00 12/08/22 08:28 Acetaminophen 500 Mg Tab PO 12/08/22 18:00 1,000 mg PREOP JOVANNA Administration Dexamethasone 8 mg 12/08/22 06:00 12/08/22 08:28 Dexamethasone 4 Mg Tab PO 12/08/22 18:00 8 mg PREOP JOVANNA Administration Famotidine 20 mg 12/08/22 06:00 12/08/22 08:29 Famotidine 20 Mg Tab PO 12/08/22 18:00 20 mg PREOP JOVANNA Administration Gabapentin 300 mg 12/08/22 06:00 12/08/22 08:29 Gabapentin 300 Mg Cap PO 12/08/22 18:00 300 mg PREOP JOVANNA Administration Lactated Ringer's 1,000 mls @ 15 mls/hr 12/08/22 06:00 12/08/22 08:29 Lr IV 12/08/22 18:00 15 mls/hr .Q24H JOVANNA Administration Lactated Ringer's 1,000 mls @ 60 mls/hr 12/08/22 06:00 12/08/22 08:28 Lr IV 12/08/22 22:39 Not Given .[id number] JOVANNA NPO Date Last Intake of Fluids: 12/07/22 Time Last Intake of Fluids: 18:00 Date Last Intake of Solids: 12/07/22 Time Last Intake of Solids: 18:00 Past Medical History Medical History COPD (chronic obstructive pulmonary disease) Depression Difficult intubation Hx epiglottis SCC s/p surgery 07/21/16 during which it was determined endoscopic approach would not be adequate. Trach tube was re-placed and per records scanned to chart, pt underwent chemo therapy and radiation, trach eventually reversed. Persistent dysphagia, hoarse voice. Pt is also s/p cervical surgical intervention for C2 fracture with limited cervical extension and small oral opening on exam. DVT (deep venous thrombosis) LLE DVT (20 years ago) again to right leg in Jun 2022 > Eliquis History of cellulitis RLE, resolved s/p abx/steroids Hypertension Hypothyroidism Neck fracture s/p surgery (screws C2) Obesity Peripheral neuropathy Distal lower extremities + hands Sleep apnea CPAP (compliant) Squamous cell cancer of epiglottis Surgical intervention initiated 07/21/16 (see operative report) then terminated d/t extent of disease. Trach tube re-placed. Pt underwent chemo and radiation through [facility] in [place] and trach eventually reversed approximately 6 months after placement. Follows with ENT, Dr. Bermeo q 6 months Exercise / Class Metabolic Activity II 4-5 Yardwork/Stairs/Walk up hill Past Family History Family History Other Diabetes Past Surgical History Surgical History H/O discectomy C2 > 90% ROM per pt, side to side is more difficult H/O hernia repair Inguinal x2 History of colonoscopy History of esophagogastroduodenoscopy (EGD) History of reverse total replacement of right shoulder joint Right reverse TSA (02/24/22): Grade view 1 "good view, narrow airway, swollen epiglottis, liekly subglottic stenosis as well" with "Elective" glidescope #3, ETT 6.5. 7.0 ETT attempted- "very tight especially after going through cords" at [facility]. Per post-op anesthesia progress note, "The patient is awake and comfortable. SpO2 is 94 on 2 L NC. His other vitals are stable. The patient is using an incentive spirometer. The patient was noted to have a small airway requiring a 6.5 ETT due to history of epiglottis cancer and tracheostomy. He tolerated the procedure well and was extubated without incident in the OR." Hx of vascular surgery stents to several vessels in abdomen Status post fracture of femur Left ORIF Status post ORIF of fracture of ankle Left Status post tracheostomy Placed after throat surgery (2016), subsequently reversed Past Anesthesia History No Hx of Anesthesia Complications and No Family Hx of Anesthesia Complications Difficult intubation: s/p surgical intervention, chemo and radiation for SCC of epiglottis in 2015/2016; tracheostomy placed and later reversed per pt (approximately 6 months after placement). S/p surgical intervention for cervical fracture. Right reverse TSA (02/24/22): Grade view 1 "good view, narrow airway, swollen epiglottis, liekly subglottic stenosis as well" with "Elective" glidescope #3, ETT 6.5. 7.0 ETT attempted- "very tight especially after going through cords" at [facility]. Per post-op anesthesia progress note, "The patient is awake and comfortable. SpO2 is 94 on 2 L NC. His other vitals are stable. The patient is using an incentive spirometer. The patient was noted to have a small airway requiring a 6.5 ETT due to history of epiglottis cancer and tracheostomy. He tolerated the procedure well and was extubated without incident in the OR." History of PONV No Hx of PONV and No Hx of Motion Sickness Social History Smoking Status: Former smoker tobacco type: cigarettes Do You Dip or Chew Tobacco: No Smoking End Date: Quit 2015 Hx Alcohol Use: Yes Alcohol type: beer alcohol intake frequency: a few times a month Hx Substance Use: No substance use type: does not use Physical Exam Vital Signs Last Vital Signs Temp 98.1 F 12/08/22 08:05 Pulse 64 12/08/22 08:05 Resp 22 12/08/22 08:05 BP 105/76 12/08/22 08:05 Pulse Ox 94 12/08/22 08:05 O2 Del Method Room Air 12/08/22 08:05 ENMT Mouth: no dentition abnormality Thyromental Distance: > or= 3.5 Finger Breadths Mallampati Class: II Neck normal visual inspection Respiratory normal respiratory effort Auscultation: lungs clear to auscultation bilaterally Cardiovascular Rate/Rhythm: regular rate and regular rhythm Heart Sounds: no murmur Testing Electrocardiogram Date: 01/23/22 Sinus bradycardia, rate 55 bpm Chest X-Ray Date: 01/23/22 No lines and tubes are seen. The cardiomediastinal silhouette is normal. The lungs are clear. No evidence of pleural effusion or pneumothorax. Degenerative changes are seen in the thoracic spine. IMPRESSION: No acute chest disease. Echocardiogram Date: 09/19/22 EF 48%. Mild diffuse hypokinesis. Systolic function is at the lower limits of normal. Aortic valve sclerosis. No evidence of stenosis. No significant v alvular disease. Stress Test Date: 02/04/20 Exercise MPHR 86% No dobutamine induced EKG changes, occasional PVCs are seen Stress echo: LV EF low-normal to mildly reduced estimated at 50% with mild global hypokinesis and no segmental wall motion abnormality
[2022-12-08] MEDS ORDERED: ORTHO JOINT ANESTHETIC ONE (10:24)
--- NOTE | 2022-12-08 10:39 | History & Physical Bridge Note ---
Date of Service December 08, 2022 History & Physical Bridge Note I have examined the patient, reviewed the History & Physical and in the interval since the performance of the History & Physical I have noted the following changes of clinical significance: no changes noted
[2022-12-08] MEDS ORDERED: SUCCINYLCHOLINE CHLORIDE 20 MG/ML 10 ML VIAL IV ONE (11:26)
[2022-12-08] MEDS ORDERED: DEXAMETHASONE SOD INJ 4 MG/ML VIAL ONE (11:26)
[2022-12-08] MEDS ORDERED: ONDANSETRON INJ 2 MG/ML 2 ML VIAL ONE (11:26)
--- NOTE | 2022-12-08 12:21 | Operative Report ---
PG Post Operative Report Pre & Post Diagnosis Operation Date: 12/08/22 10:00 Pre-Op Diagnosis: Right Knee Degenerative Joint Disease Post-Op Diagnosis: Right Knee Degenerative Joint Disease I identified the patient and participated in the time-out.: Yes Procedure Operation Date: 12/08/22 10:00 Actual Procedures p Right Total Knee Arthroplasty(Right) - Brayan Hubbard DO Surgeon Brayan Hubbard DO Cake Cutter Machine Brayan Germain PA-C Estimated Blood Loss 50 Findings Consistent with Post-Op Diagnosis Specimens Right femoral and tibial bone Description of Procedure Implants used: I used a Caren Persona total knee arthroplasty system with a size 12 PS femur, G tibia, 37 oval patella, and a size 10 CPS polyethylene bearing. All components were cemented in place with Biomet cement. Akira arrived [facility] for the above procedure. He was seen in the preoperative holding area and the operative extremity was identified and signed. He was given a preoperative antibiotic, TXA, a spinal anesthetic and an adductor nerve block. He was taken back to the operating room and laid on the table in supine position. He was given basic sedation. The operative knee was then prepped and draped in sterile fashion. A timeout was done, and the patient and the operative extremity was properly identified. A midline incision was made directly over the patella. Dissection was taken down to the extensor mechanism. A medial parapatellar arthrotomy was used. The medial retinaculum was released and the fat pad was mostly excised. The knee was flexed and the ACL, PCL, and meniscus were removed. A drill was sent down the center of the femoral canal followed by an intramedullary heraclio. Off that heraclio a distal femoral cutting block was placed. 9 mm was resected off the distal femur at 5 of valgus. A posterior referencing AP sizing guide was then placed on the distal femur. The femur measured to be a size 12. 2 drill holes were placed in 3 of external rotation. A 4-in-1 cutting block was then impacted into place. Anterior, posterior, and chamfer cuts were then made. The proximal tibia was then exposed. An external tibial alignment guide was placed. A tibial cut guide was then anchored in place and the proximal tibia was then resected. The posterior aspect of the knee was then opened up and any additional meniscus fragments and osteophytes were removed. The tibia measured to be a size G. The tibial plate was then placed in the appropriate rotation and the tibia was drilled and punched. Trial components were then placed. I used a size 10 CPS polyethylene insert. The knee was brought through a full range of motion and felt to be stable. The peg holes for the femoral component were then drilled. The patella was then everted and 9 mm was resected off the posterior aspect of the patella. The patella measured to be a size 37 oval. 3 peg holes were then drilled. A trial patella was placed. The knee was once again brought through a full range of motion and felt to be stable. Trial components were then removed. The surrounding soft tissues were injected with 100 cc of an orthopedic pain control cocktail. All components were then cemented into place with Biomet cement. The final polyethylene insert was then snapped into place. Once cement was dry the tourniquet was deflated. Hemostasis was obtained. A dilute betadyne lavage was then done for 3 minutes. The joint was then irrigated with normal saline solution. The medial parapatellar arthrotomy was then closed with #1 Vicryl suture. The skin was closed with 2-0 Vicryl, 3-0V lock suture, and kaiser. A soft compressive dressing was placed. He was then transferred to a hospital bed and taken to the postanesthesia care unit in stable condition. He tolerated the procedure well. Brayan Germain PA-C, was present for the entire procedure. He was critical for patient positioning, prepping, draping, retraction exposure, wound closure and application of sterile dressing. I attest to the content of the Intraoperative Record and any orders documented therein. Any exceptions are noted below.
[2022-12-08] MEDS: fentaNYL citrate PF 100 MCG/2 ML VIAL IV PRN ×2 (13:05→13:12)
--- NOTE | 2022-12-08 13:24 | XRay Report ---
TWO VIEWS RIGHT KNEE CLINICAL HISTORY: Postoperative examination. FINDINGS: AP and crosstable lateral portable views of the right knee are obtained. A right knee arthr oplasty is in near anatomic alignment. There has been undersurface remodeling of the patella. No acut e fracture is seen. There are expected postoperative changes around the knee including skin clips, so ft tissue edema, and subcutaneous gas. IMPRESSION: Expected postoperative changes status post right knee arthroplasty. No acute fracture is seen. ACT 112: Negative or not required by law. Electronically signed by: Nestor Umana M.D. 12/08/2022 1:22 PM
--- NOTE | 2022-12-08 13:29 | Anesthesiology Progress Note ---
Date of Service December 08, 2022 Anesthesia Post Procedure Vital Signs Vital Signs: Temp Pulse Pulse Resp BP Pulse Ox O2 Del Method 12/08/22 13:20 75 16 146/97 H 96 Nasal Cannula 12/08/22 13:10 76 18 154/102 H 94 Oxymask 12/08/22 13:00 72 20 149/94 H 93 Oxymask 12/08/22 12:51 97.2 F L 79 12 143/89 H 93 Oxymask 12/08/22 08:05 98.1 F 64 22 105/76 94 Room Air O2 Flow Rate 12/08/22 13:20 2 12/08/22 13:10 4 12/08/22 13:00 6 12/08/22 12:51 6 12/08/22 08:05 Pain Intensity Right Knee: Pain Intensity: 5 Transfer of Care Handoff Completed per policy Notes Mental Status: alert / awake / arousable and participated in evaluation Patient Amnestic to Procedure: Yes Nausea / Vomiting: adequately controlled Pain: adequately controlled Airway Patency, RR, SpO2: stable & adequate BP & HR: stable & adequate Hydration State: stable & adequate Anesthetic Complications: no major complications apparent and Pt Satisfied with anesthetic care
[2022-12-08] MEDS ORDERED: bisacodyL 10 MG SUPP PR PRN (13:53)
[2022-12-08] MEDS ORDERED: ALBUTEROL HFA 8 GM INHALER INH PRN (13:53)
[2022-12-08] MEDS ORDERED: MAGNESIUM HYDROXIDE SUSP 30 ML UDC PO PRN (13:53)
[2022-12-08] MEDS ORDERED: HYDROmorphone INJ 0.5 MG/0.5 ML SYR IV PRN (13:53)
[2022-12-08] MEDS ORDERED: METOCLOPRAMIDE HCL INJ 5 MG/ML 2 ML VIAL IV PRN (13:53)
[2022-12-08] MEDS ORDERED: oxyCODONE HCL IR 5 MG TAB (IMMEDIATE RELEASE) PO PRN (13:53)
[2022-12-08] MEDS ORDERED: NALOXONE HCL 0.4 MG/1 ML VIAL/CARP IV PRN (13:53)
[2022-12-08] MEDS ORDERED: DICLOFENAC SOD 1% GEL 100 GM TUBE EXT PRN (13:56)
[2022-12-08] MEDS: SODIUM CHLORIDE 0.9% 1000ML 1,000 ML IV SCH (14:58)
[2022-12-08] MEDS: ACETAMINOPHEN 500 MG TAB PO SCH ×2 (15:01→22:08)
[2022-12-08] MEDS: KETOROLAC 30 MG/ML VIAL IV SCH ×3 (15:01→23:37)
[2022-12-08] MEDS: ceFAZolin 2000MG 2,000 MG/15 ML SYR IV SCH (18:14)
[2022-12-08] MEDS: carvediloL 12.5 MG TAB PO SCH (19:44)
[2022-12-08] MEDS: DULoxetine HCL 30 MG CAP PO SCH (19:45)
[2022-12-08] MEDS: DOCUSATE SODIUM 100 MG CAP PO SCH (19:45)
[2022-12-08] MEDS: TAMSULOSIN HCL 0.4 MG CAP PO SCH (19:47)
[2022-12-08] MEDS: FLUTICASONE/VILANTEROL 200/25MCG 14 PUFFS/INHALER INH SCH (19:47)
[2022-12-08] MEDS ORDERED: FLUTICASONE/SALMETEROL 250/50 (ADVAIR) 14 PUFF/1 INHALER INH SCH (21:00)
[2022-12-08] MEDS ORDERED: SENNA 8.6 MG TAB PO SCH (21:00)
[2022-12-09] MEDS: SODIUM CHLORIDE 0.9% 1000ML 1,000 ML IV SCH (01:21)
[2022-12-09] MEDS: ceFAZolin 2000MG 2,000 MG/15 ML SYR IV SCH (02:58)
[2022-12-09] MEDS: ACETAMINOPHEN 500 MG TAB PO SCH (05:48)
[2022-12-09] MEDS: KETOROLAC 30 MG/ML VIAL IV SCH (05:49)
[2022-12-09] MEDS ORDERED: LEVOTHYROXINE SODIUM 100 MCG TABLET PO SCH (06:30)
--- NOTE | 2022-12-09 06:49 | Orthopedic Progress Note ---
Date of Service December 09, 2022 Assessment & Plan (1) Status post right knee replacement: Overall he is doing very well. He is not having much pain in the right knee. He will be seen by physical therapy today for ambulation and range of motion exercises. He is on Eliquis for DVT prophylaxis. He can be discharged home later today. He will follow-up with orthopedics in 2 weeks. Myles Rodríguez was seen and examined at bedside this morning. Overall he is doing fairly well. He is not having much pain in the right knee. He has been up and ambulating to the bathroom. He has no complaints.. Review of Systems All systems reviewed & are unremarkable except as noted in HPI & below. Physical Exam On physical examination of the right knee, the dressing is clean and dry. His leg is out full extension. He has active dorsiflexion plantarflexion of the right ankle.. Results & Data Results & Data Laboratory Results . Diagnostic Findings Postoperative x-rays of the right knee show the prosthesis to be in anatomic alignment without any evidence of fracture, dislocation, or loosening.. PG Care Time/CCT Total # of Minutes Spent Total Time Spent with Patient: Total time spent is greater than 50% in coordination of care (as documented) at patient's floor/unit and/or counseling patient: Coding Level of Care Code 09376 Post Operative Follow-Up Diagnoses Status post right knee replacement Z96.651
--- NOTE | 2022-12-09 06:51 | Discharge Summary ---
Date of Service December 09, 2022 Principal Diagnosis Same as "Discharge Diagnosis" noted below under Discharge Instructions. Discharge Exam On physical examination of the right knee, the dressing is clean and dry. His leg is out full extension. He has active dorsiflexion plantarflexion of the right ankle.. Discharge Data Procedures Performed Operation Date: 12/08/22 10:00 Actual Procedures p Right Total Knee Arthroplasty(Right) - Brayan Hubbard DO Ordered Studies 12/08/22 05:00 US - OR guided needle placemen Routine Hospital Course (1) Status post right knee replacement: On December 09, 1999 [id number] arrived at [facility] and underwent a right knee replaced without complication. He had a general anesthetic. Postoperatively he was started back on Eliquis for DVT prophylaxis and transferred to the general orthopedic floors. His hospital course was uneventful. On postop day #1, his vital signs were stable and his pain was well controlled. He was able to participate well with physical therapy doing ambulation and range of motion exercises. He was then discharged home. He will follow-up with orthopedics in 2 weeks. PG Care Time/CCT Total # of Minutes Spent Total Time Spent with Patient: Total time spent is greater than 50% in coordination of care (as documented) at patient's floor/unit and/or counseling patient: Discharge Plan Discharge Items Patient Disposition: Home - Home Health Services Reason For Visit: Right Knee Degenerative Joint Disease Discharge Diagnosis: Right knee replacement Activity: Per Instructions section Non-emergency contact: Surgeon Call non-emergency contact if: your wound has increased redness and your wound has increased drainage Follow-up/Referrals: Reed Jo DO [Primary Care Provider] - Diet: Regular Addtl Attending Provider Instructions: Activity and Therapy Recommendations: * If you are using [facility] then therapy will be provided at your home until they feel you have accomplished all of your goals. * If you are using [facility] then Physical Therapy will be provided until they feel you are ready to start Outpatient Physical Therapy. * If you are not using home therapy then Outpatient Physical Therapy should start about 3-5 days from your day of surgery. Therapy will last about 6-10 weeks * It is important not to put a pillow under your knee when you are relaxing or sleeping. It is just as important to make sure you are getting your knee perfectly straight as it is to regain your knee bend. * You were shown a series of exercises in the hospital. Do these exercises three times each day including the exercises you were shown in physical therapy. * Get up and walk several times each day. For the first four weeks, try not to stand or walk for more than one hour at a time. If you do stand or walk for more than one hour, you will not hurt anything, but your leg will likely swell. * As you feel comfortable, you may change from the walker or crutches to a cane and then to independent walking. Medications: * Narcotic You will likely be sent home from the hospital with a prescription for the narcotic pain medication that worked best throughout your stay. * Eliquis - continue taking your Eliquis as prescribed. * Other medications may be prescribed for specific circumstances. If you have any questions, please call the office at . * Resume previous home medications unless otherwise instructed TEDs/Elastic Stockings: The white elastic stockings help limit swelling and prevent blood clots from forming in your legs.~ The more you wear them, the more they work. Wear them for six weeks. Dressing Care: The dressing can be changed after physical therapy on postop day #1. Daily dry dressing changes for a few days, especially if the incision is still draining some. If the incision is not draining then you may leave the kaiser open to air. If there is a little bit of drainage or if the kaiser are getting stuck on your clothing then cover the incision with a dry dressing. The kaiser will be removed at your 2 week follow-up appointment. Showering: You may shower 5 days from the day of surgery as long as the incision is no longer draining. You may shower with the kaiser exposed. Let soapy water run over the kaiser and pat them dry. Do not scrub or soak the incision. Things To Watch For: * Drainage from the incision site that occurs more than one week after your surgery. * Increased redness at the incision site. * Fever above 102 degrees Fahrenheit. * Unusual chest pain or shortness of breath. * Call [facility] at with any of the above problems Follow-Up Visit: Follow-up with Dr. Hubbard's PA (Brayan Germain) 2-3 weeks after your day of surgery. He will remove your kaiser and answer any questions. If you have any additional questions or concerns, Dr Hubbard is usually in the office at the same time and will be available An appointment was probably scheduled when you signed-up for surgery in the office. If you have any questions call Office Instructions: More detailed instructions as well as Frequently Asked Questions were provided in a folder by our office when you signed-up for surgery. Please review these instructions when you get home. If you have any further questions or concerns, please feel free to call the office at [phone] Pending Studies at Discharge: No Stand-Alone Forms: My [facility] Medications and DC Order Prescriptions: New oxycodone-acetaminophen 5-325 mg tablet 1 tab PO Q6H PRN (Reason: pain) Qty: 30 0RF Continued duloxetine [Cymbalta] 30 mg capsule,delayed release(DR/EC) 30 mg PO BID losartan 100 mg tablet 100 mg PO QAM diclofenac sodium 3 % gel 1 applic topical BID PRN (Reason: Pain) levothyroxine 100 mcg capsule 100 mcg PO QAM fluticasone propion-salmeterol [Advair Diskus] 250-50 mcg/dose blister with device 1 inh inhalation BID Spiriva with HandiHaler 18 mcg capsule, w/inhalation device 1 cap inhalation QAM Rx Instructions: puncture 1 cap using device; one dose = 2 inhalations amlodipine 5 mg tablet 5 mg PO QAM albuterol sulfate [ProAir HFA] 90 mcg/actuation HFA aerosol inhaler 1 inh inhalation QID PRN (Reason: Shortness Of Breath) tamsulosin 0.4 mg capsule 0.4 mg PO BID carvedilol [Coreg] 6.25 mg tablet 12.5 mg PO BID Rx Instructions: must administer with a meal/food (DME) Renea Vela [facility] See Rx Instructions .MEDSUPPLY Qty: 1 0RF Rx Instructions: As directed aspirin 81 mg Tablet,Delayed Release (Dr/Ec) 81 mg PO QAM acetaminophen [Tylenol] 325 mg Tablet 325 mg PO QID PRN (Reason: Pain) Eliquis 5 mg Tablet 5 mg PO BID Admission Data Admit Date/Time: 12/08/22 12:53 Attending Provider: Brayan Hubbard Admit Provider: Brayan Hubbard Primary Care Provider: Reed Jo
[2022-12-09] MEDS ORDERED: dexAMETHasone 4 MG TAB PO SCH (08:00)
[2022-12-09] MEDS: FLUTICASONE/VILANTEROL 200/25MCG 14 PUFFS/INHALER INH SCH (08:22)
[2022-12-09] MEDS: APIXABAN 5 MG TABLET PO SCH ×2 (08:22→08:25)
[2022-12-09] MEDS: DOCUSATE SODIUM 100 MG CAP PO SCH (08:23)
[2022-12-09] MEDS: DULoxetine HCL 30 MG CAP PO SCH (08:23)
[2022-12-09] MEDS: carvediloL 12.5 MG TAB PO SCH (08:23)
[2022-12-09] MEDS: TAMSULOSIN HCL 0.4 MG CAP PO SCH (08:24)
[2022-12-09] MEDS ORDERED: TIOTROPIUM BROMIDE 5 PUFF/90 MCG INH INH SCH (09:00)
[2022-12-09] MEDS ORDERED: amLODIPine BESYLATE 5 MG TAB PO SCH (09:00)
[2022-12-09] MEDS ORDERED: MULTIVITAMIN TAB PO SCH (09:00)
[2022-12-09] MEDS ORDERED: UMECLIDINIUM BROMIDE 62.5MCG/BLISTER 7 PUFFS/INHALER INH SCH (09:00)
[2022-12-09] MEDS ORDERED: LOSARTAN POTASSIUM 50 MG TAB PO SCH (09:00)
== END 2022-12-09 11:02 | disposition home health service (06) ==
LOC: ASU 07:40 → 3E 07:40